=== PATIENT | female | born 1955 | race Caucasian/White ===

== ENCOUNTER → 2020-01-06 15:38 | Outpatient (ROUT) | payer OTHER, SELFPAY | PROVIDERS: Visit Provider Physician Assistant | DX: R39.9 Unspecified symptoms and signs involving the genitourinary system (principal); R14.0 Abdominal distension (gaseous) | CPT/HCPCS: 87086 ==

== ENCOUNTER → 2021-08-03 07:06 | Outpatient (CLI) | payer MEDICARE, OTHER, SELFPAY ==
[2021-08-03 08:24] LABS: Hematocrit 41.9 % (36-46); Hemoglobin 14.5 g/dL (12.0-16.0); Mean Corpuscular HGB Conc 34.7 % (30-36); Mean Corpuscular Hemoglobin 30.8 PG (26-34); Mean Corpuscular Volume 88.8 fL (80-100); Platelet Count 189 X10^3/uL (150-400); Red Blood Cell Count 4.73 X10^6/uL (4.0-5.2); Red Cell Distribution Width 13.5 % (11.6-14.8); White Blood Cell Count 6.7 X10^3/uL (4.5-11.0)
[2021-08-03 08:34] LABS: Alanine Aminotransferase 26 IU/L (<35); Albumin 3.9 g/dL (3.5-5.0); Albumin Globulin Ratio 1.3 (1.0-2.8); Alkaline Phosphatase 49 U/L (38-126); Aspartate Aminotransferase 29 IU/L (14-36); BUN Creatinine Ratio 31.6 (6-22); Bilirubin Total 0.6 mg/dL (0.2-1.3); Blood Urea Nitrogen 24 mg/dL (7-17); Carbon Dioxide 29 mmol/L (22-32); Chloride 104 mmol/L (98-107); Cholesterol 184 mg/dL (140-199); Estimated Glomerular Filt Rate > 60 mL/min (>60); Globulin 3.1 g/dL (1.7-4.1); Glucose 99 mg/dL (80-110); HDL Cholesterol 64 mg/dL (40-60); HEMOLYSIS < 15 (0-50); LDL Cholesterol Calculated 108 mg/dL (<100); Potassium 4.1 mmol/L (3.4-5.1); Sodium 139 mmol/L (137-145); Triglycerides 58 mg/dL (35-150)
== END ==
PROVIDERS: PCP Internal Medicine; Referring Provider Internal Medicine; Visit Provider Internal Medicine
DX: E78.2 Mixed hyperlipidemia (principal); Z86.010 Personal history of colon polyps; Z87.19 Personal history of other diseases of the digestive system
CPT/HCPCS: 36415; 80053; 80061; 84443; 85027

== ENCOUNTER 2022-04-27 11:48 | Day surgery (SDC) | payer MEDICARE, OTHER, SELFPAY ==
--- NOTE | 2022-04-27 | PATH_ITS ---
[facility] Accession Number: [id number] No. of containers..01 Tissue . 01 Material submitted: . gastrointestinal site - GASTRIC POLYPS . 01 Diagnosis: Gastric Polyps: Gastric body mucosa with no diagnostic abnormality. No evidence of Helicobacter organisms on H/E stain. Negative for intestinal metaplasia. Negative for dysplasia or malignancy. Additional step sections examined. MRV 05/04/2022 1452 Local . 01 Electronically signed: . Luis Manuel Gaspar MD, PhD, Pathologist NPI- [id number] . 01 Gross description: . GASTRIC POLYPS: Received in formalin are 2 fragment(s) of burns, soft tissue measuring 0.3 x 0.1 x 0.1 cm to 0.3 x 0.1 x 0.1 cm submitted entirely in 1 cassette(s) /CPE 04/28/2022 0601 Local . 01 Pathologist provided ICD-10: K31.7 . 01 CPT . 003014 Specimen Comment: A courtesy copy of this report has been sent to [phone] Performed at: 01 [facility] [address] [place] [address] [address] [facility], [place], [place] [id number] MD Ambrosio Nettles MD Phone: [phone]
[2022-04-27 13:15] VITALS: BMI 25.8
[2022-04-27 13:19] VITALS: BP 131/79; PULSE 89; RESP 16; TEMP 37.2; O2SAT 98
[2022-04-27] MEDS: LACTATED RINGERS 1,000 ML 42 ML IV (13:28)
--- NOTE | 2022-04-27 13:32 | PM.HP.1 ---
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 Findings were missing on follow-up and upper endoscopy. In addition history of adenomatous colon polyps. Patient History Medical History (Updated 08/02/21 @ 14:57 by Octavio Mooney MD) History of Mcallister's esophagus History of colon polyps Medicare annual wellness visit, initial Tinnitus Family & Social History Family History Father Stroke Mother History of emphysema Social History: household members spouse Tobacco & Substance use: Smoking Status Former smoker alcohol intake never Substance Use Type does not use Meds Home Medications and Allergies Home Medications Medication Instructions Recorded Confirmed Type cholecalciferol (vitamin D3) 125 125 mcg PO DAILY 08/02/21 04/27/22 History mcg (5,000 unit) capsule epinephrine 0.3 mg/0.3 mL 0.3 mg IM Q4H PRN 08/02/21 08/02/21 History injection, auto-injector (EpiPen) glutamine 500 mg tablet 500 mg PO DAILY 08/02/21 04/27/22 History (L-Glutamine) multivitamin 1 tab PO DAILY 08/02/21 04/27/22 History omega-3 fatty acids 1,000 mg 1,000 mg PO DAILY 08/02/21 04/27/22 History capsule probiotic 1 cap PO DAILY 08/02/21 History Allergies Allergy/AdvReac Type Severity Reaction Status Date / Time Penicillins Allergy lip Verified 04/27/22 13:13 swelling;childhood rxn Exam Vital Signs (past 8 hours): - 04/27/22 13:19 Temperature 98.9 F Pulse Rate 89 Respiratory Rate 16 Blood Pressure 131/79 Pulse Oximetry 98 Oxygen Delivery Method Room Air Oxygen Delivery Method Room Air Narrative Exam Narrative: Oropharynx free of lesions Chest clear to auscultation percussion Cardiac exam reveals no S3 or murmur Assessment & Plan Assessment & Plan narrative: History of Mcallister's esophagus and history of adenomatous colon polyps need for follow-up colonoscopy and upper endoscopy. Risks, benefits, alternatives have been explained. Further recommendations will follow the results of that study. Time Spent With Patient Critical Care time: I spent a total of [] minutes of critical care time on this patient's care today; this time is exclusive of procedural time.
--- NOTE | 2022-04-27 13:34 | PM.OP.EC ---
Operative Date/Time/Diagnoses Date of procedure: 04/27/22 Pre-op diagnosis: See indication and findings Procedure & Clinicians Study performed: EGD and colonoscopy Indications: Mcallister's esophagus and history of adenomatous colon polyps Surgeon: Linda Lewis Procedure Notes Procedure in detail: After informed consent was obtained the patient was placed in left lateral decubitus position. The video upper scope was placed into the oropharynx and with the patient's help swelled into the esophagus. The esophagus stomach and duodenum were carefully examined. On withdrawal, retroflexed view the GE junction was performed. The scope was removed. The patient tolerated procedure well. Blood loss none Complications none Sedation propofol Findings EGD 1. Completely regular squamocolumnar junction without any irregularities to suggest Mcallister's esophagus. No random biopsies taken. This was approximately at 40 cm. 2. Few small pitted gastric polyps in the body of the stomach. Biopsies taken to rule out adenoma 3. Normal duodenal bulb and sweep Colonoscopy 1. Unable to pass colonoscope beyond the splenic flexure. There was a very deep but palpable loops within the pelvis that could not be reduced. This area the colon appeared normal. I would suggest no further EGD or colonoscopy for the patient. If completion colorectal cancer screening is appropriate then one should consider virtual colonoscopy (CT colography))
[2022-04-27 14:16] VITALS: BP 141/99; PULSE 73; RESP 14; TEMP 36.1; O2SAT 95
[2022-04-27 14:20] VITALS: BP 138/93; PULSE 72; RESP 16; O2SAT 96
[2022-04-27 14:32] VITALS: BP 138/85; PULSE 76; RESP 20; O2SAT 97
[2022-04-27 14:36] VITALS: BP 138/83; PULSE 66; RESP 23; TEMP 36.3; O2SAT 97
[2022-04-27] MEDS: ONDANSETRON 4 MG ODT SL (15:17)
[2022-04-27 15:18] VITALS: BP 133/92; PULSE 83
--- NOTE | 2022-04-27 16:15 | SUR.PHASEII ---
Patient vomited 100mL after speaking with Dr. Lewis. aware, KELLIE Sin ordered and given. Patient went to the bathroom and reportedly passed flatus. Pain decreased to 3/10 and nausea improved. Patient discharged.
== END 2022-04-27 15:40 | disposition home or self-care (01) ==
PROVIDERS: PCP Internal Medicine; Referring Provider Internal Medicine Gastroenterology; Visit Provider Internal Medicine Gastroenterology
PROC: 0DJ08ZZ Inspection of Upper Intestinal Tract, Via Natural or Artificial Opening Endoscopic (ICD-10-PCS; CPT 43235; principal; 2022-04-27 13:30)
PROC: 0DJD8ZZ Inspection of Lower Intestinal Tract, Via Natural or Artificial Opening Endoscopic (ICD-10-PCS; CPT 45378; 2022-04-27 13:30)
DX: Z87.19 Personal history of other diseases of the digestive system (principal); Z86.010 Personal history of colon polyps; Z53.09 Procedure and treatment not carried out because of other contraindication
CPT/HCPCS: 43239; G0105; J2250; J2704; J3010

== ENCOUNTER → 2022-07-09 10:39 | Outpatient (CLI) | payer MEDICARE, OTHER, SELFPAY ==
--- NOTE | 2022-07-09 10:41 | DI.MG.S_ITS ---
BILATERAL DIGITAL SCREENING MAMMOGRAM 3D/2D WITH CAD: 07/09/2022 CLINICAL: Routine screening. Family history of breast cancer. Baseline exam by default. No prior exams were available for comparison. There are scattered areas of fibroglandular density in both breasts (category b / 25%-50% glandular tissue). Current study was also evaluated with a Computer Aided Detection (CAD) system. There are regional calcifications in the left breast at 1 o'clock middle depth. No other significant masses, calcifications, or other findings are seen in either breast. IMPRESSION: INCOMPLETE: NEEDS ADDITIONAL IMAGING EVALUATION The regional calcifications in the left breast are indeterminate. Additional views are recommended. Based on the Tyrer Cuzick model (a risk assessment model) the patient's lifetime risk is 12.4% and her 10 year risk is 6.6%. According to the ACR, ACS, and NCCN guidelines, an annual breast MRI exam along with mammogram is recommended if the patient's lifetime risk is 20% or greater. This exam was interpreted at Station ID: [id number]. NOTE: For mammograms, a report in lay terms will be sent to the patient. Approximately 15% of breast malignancies will not be visualized mammographically. In the management of a palpable breast mass, a negative mammogram must not discourage biopsy of a clinically suspicious lesion. Electronically Signed By: Steve Braga M.D. lc/:07/11/2022 08:09:08 letter sent: Additional Imaging Needed ACR BI-RADS Category 0: Incomplete [id number]
== END ==
PROVIDERS: PCP Internal Medicine; Referring Provider Internal Medicine; Visit Provider Internal Medicine
DX: Z12.31 Encounter for screening mammogram for malignant neoplasm of breast (principal); Z80.3 Family history of malignant neoplasm of breast
CPT/HCPCS: 77063; 77067

== ENCOUNTER → 2022-07-21 09:25 | Outpatient (CLI) | payer MEDICARE, OTHER, SELFPAY ==
--- NOTE | 2022-07-21 | DI.MG.S_ITS ---
UNILATERAL LEFT DIGITAL DIAGNOSTIC MAMMOGRAM 3D/2D WITH ADDITIONAL VIEWS: 07/21/2022 CLINICAL: Additional evaluation requested from prior study. Comparison is made to exam dated: 07/09/2022 mammogram - [facility]. There are scattered areas of fibroglandular density in the left breast (category b / 25%-50% glandular tissue). There are regional calcifications in the left breast at 1 o'clock middle depth. These are seen in additional views. No other significant masses or calcifications are seen in the breast. IMPRESSION: PROBABLY BENIGN The regional calcifications in the left breast are probably benign. A follow-up mammogram in 6 months is recommended to demonstrate stability. Based on the Tyrer Cuzick model (a risk assessment model) the patient's lifetime risk is 12.4% and her 10 year risk is 6.6%. According to the ACR, ACS, and NCCN guidelines, an annual breast MRI exam along with mammogram is recommended if the patient's lifetime risk is 20% or greater. This exam was interpreted at Station ID: [id number]. NOTE: For mammograms, a report in lay terms will be sent to the patient. Approximately 15% of breast malignancies will not be visualized mammographically. In the management of a palpable breast mass, a negative mammogram must not discourage biopsy of a clinically suspicious lesion. Electronically Signed By: Steve Braga M.D. lc/:07/21/2022 10:13:26 letter sent: Followup Recommended ACR BI-RADS Category 3: Probably benign [id number]
== END ==
PROVIDERS: PCP Internal Medicine; Referring Provider Internal Medicine; Visit Provider Internal Medicine
DX: R92.1 Mammographic calcification found on diagnostic imaging of breast (principal)
CPT/HCPCS: 77065; G0279

== ENCOUNTER → 2022-11-03 06:41 | Outpatient (CLI) | payer MEDICARE, OTHER, SELFPAY ==
[2022-11-03 08:14] LABS: Alanine Aminotransferase 25 IU/L (<35); Albumin Globulin Ratio 1.7 (1.0-2.8); Alkaline Phosphatase 47 U/L (38-126); Aspartate Aminotransferase 23 IU/L (14-36); BUN Creatinine Ratio 35.7 (6-22); Bilirubin Total 0.7 mg/dL (0.2-1.3); Blood Urea Nitrogen 25 mg/dL (7-17); Calcium 9.1 mg/dL (8.4-10.2); Carbon Dioxide 25 mmol/L (22-32); Chloride 105 mmol/L (98-107); Cholesterol 199 mg/dL (140-199); Estimated Glomerular Filt Rate > 60 mL/min (>60); Globulin 2.4 g/dL (1.7-4.1); Glucose 92 mg/dL (80-110); HDL Cholesterol 86 mg/dL (40-60); HEMOLYSIS < 15 (0-50); LDL Cholesterol Calculated 100 mg/dL (<100); Potassium 4.1 mmol/L (3.4-5.1); Sodium 137 mmol/L (137-145); Total Protein 6.4 g/dL (6.3-8.2); Triglycerides 63 mg/dL (35-150)
[2022-11-03 08:18] LABS: Hematocrit 43.1 % (36-46); Hemoglobin 14.8 g/dL (12.0-16.0); Mean Corpuscular HGB Conc 34.3 % (30-36); Mean Corpuscular Hemoglobin 30.6 PG (26-34); Mean Corpuscular Volume 89.3 fL (80-100); Platelet Count 177 X10^3/uL (150-400); Red Blood Cell Count 4.83 X10^6/uL (4.0-5.2); Red Cell Distribution Width 13.7 % (11.6-14.8); White Blood Cell Count 4.8 X10^3/uL (4.5-11.0)
[2022-11-03 08:36] LABS: TSH w/ Reflex to FT4 2.03 uIU/mL (0.47-4.68)
== END ==
PROVIDERS: PCP Internal Medicine; Referring Provider Internal Medicine; Visit Provider Internal Medicine
DX: E78.2 Mixed hyperlipidemia (principal); K59.01 Slow transit constipation
CPT/HCPCS: 36415; 80053; 80061; 84443; 85027

== ENCOUNTER → 2023-01-23 11:54 | Outpatient (CLI) | payer MEDICARE, OTHER, SELFPAY ==
--- NOTE | 2023-01-23 11:57 | DI.MG.S_ITS ---
UNILATERAL LEFT DIGITAL DIAGNOSTIC MAMMOGRAM 3D/2D: 01/23/2023 CLINICAL: Short term follow up. Comparison is made to exams dated: 07/21/2022 mammogram and 07/09/2022 mammogram - [facility]. There are scattered areas of fibroglandular density in the left breast (category b / 25%-50% glandular tissue). There are regional round calcifications in the left breast at 1 o'clock middle depth, stable since 07/21/2022. No other significant masses or calcifications are seen in the breast. IMPRESSION: PROBABLY BENIGN Left breast regional round calcifications in the upper outer quadrant, stable since 07/21/2022. Findings are probably benign. A follow-up mammogram in 6 months is recommended to demonstrate 1 year stability. Patient will be due for bilateral mammograms at that time. Findings and recommendations were conveyed to the patient during today's evaluation. Based on the Tyrer Cuzick model (a risk assessment model) the patient's lifetime risk is 12.4% and her 10 year risk is 6.6%. According to the ACR, ACS, and NCCN guidelines, an annual breast MRI exam along with mammogram is recommended if the patient's lifetime risk is 20% or greater. This exam was interpreted at Station ID: [id number]. NOTE: For mammograms, a report in lay terms will be sent to the patient. Approximately 15% of breast malignancies will not be visualized mammographically. In the management of a palpable breast mass, a negative mammogram must not discourage biopsy of a clinically suspicious lesion. Electronically Signed By: Jonna Su M.D., PH.D eb/:01/23/2023 12:33:11 letter sent: Followup Recommended ACR BI-RADS Category 3: Probably benign [id number]
== END ==
PROVIDERS: PCP Internal Medicine; Referring Provider Internal Medicine; Visit Provider Internal Medicine
DX: R92.8 Other abnormal and inconclusive findings on diagnostic imaging of breast (principal); R92.1 Mammographic calcification found on diagnostic imaging of breast
CPT/HCPCS: 77065; G0279

== ENCOUNTER → 2023-05-31 11:26 | Outpatient (CLI) | payer MEDICARE, OTHER, SELFPAY ==
--- NOTE | 2023-05-31 11:29 | DI.RAD.S_ITS ---
PROCEDURE: XR LUMBAR SPINE 2-3V INDICATIONS: left sciatica TECHNIQUE: 3 views of the lumbar spine were acquired. COMPARISON: None. FINDINGS: Bones: 5 [id number] vertebrae are present. Convex right scoliosis centered at L3, Duenas angle of 28?. Severe disc height loss at L4-5. Moderate disc height loss at remaining levels. Diffuse facet arthrosis. Soft tissues: Overlying bowel gas pattern is normal. No suspicious soft tissue calcifications. IMPRESSION: Moderate to severe, multilevel degenerative disc disease and diffuse facet arthrosis. Convex right scoliosis centered at L3. Dictated by: Fermín Swan M.D. on 05/31/2023 at 13:29 Approved by: Fermín Swan M.D. on 05/31/2023 at 13:35
== END ==
PROVIDERS: PCP Internal Medicine; Referring Provider Internal Medicine; Visit Provider Internal Medicine
DX: M51.16 Intervertebral disc disorders with radiculopathy, lumbar region (principal); M47.26 Other spondylosis with radiculopathy, lumbar region; M41.9 Scoliosis, unspecified
CPT/HCPCS: 72100

== ENCOUNTER → 2023-06-27 17:10 | Outpatient (CLI) | payer MEDICARE, OTHER, SELFPAY ==
--- NOTE | 2023-06-27 17:13 | DI.MRI.S_ITS ---
PROCEDURE: MR LUMBAR SPINE WO CON INDICATIONS: sciatica TECHNIQUE: Noncontrast sagittal T1 spin echo and T2 fast echo, sagittal STIR, and T2 fast spin echo through the lumbar spine. In cases with scoliosis, additional coronal T2 fast spin echo may be performed. COMPARISON: None. FINDINGS: Image quality: Excellent. Alignment and Curvature: Dextrocurvature of the lumbar spine. Bone Marrow: Multilevel Modic type 2 degenerative endplate changes. Marrow is of normal overall signal. No acute vertebral body compression fractures. Spinal Cord: Conus medullaris terminates at the L1 level. Visualized cord demonstrates normal signal and size. Paraspinous Soft Tissues: No paravertebral masses. T12-L1: Normal appearance. L1-L2: Mild disc desiccation facet arthropathy. No central canal or neural foraminal stenosis. L2-L3: Disc desiccation and height loss. Facet arthropathy and thickening of ligamentum flavum. Mild central canal stenosis. Mild bilateral neural foraminal stenosis. L3-L4: Disc desiccation height loss. Diffuse disc bulge. Facet arthropathy and thickening of ligamentum flavum. Epidural lipomatosis. Mild to moderate central canal stenosis. Narrowing of the left lateral recess with abutment versus impingement of the descending left L4 nerve root. Mild bilateral neural foraminal stenosis. L4-L5: Disc desiccation height loss. Diffuse disc bulge. Facet arthropathy and thickening of ligamentum flavum. Mild to moderate central canal stenosis. Narrowing of the right lateral recess with possible impingement the descending right L5 nerve root. Moderate bilateral neural foraminal stenosis. L5-S1: Disc desiccation height loss. Diffuse disc bulge. Facet arthropathy. No central canal stenosis. Severe right and no left neural foraminal stenosis. IMPRESSION: 1. Multilevel degenerative changes of the lumbar spine with dextro scoliotic curvature. 2. Mild to moderate central canal stenosis at L3-L4 and L4-5. Narrowing of the left lateral recesses as above. 3. Severe right neural foraminal stenosis at L5-S1. Moderate bilateral neural foraminal stenosis at L4-5. Dictated by: Maurisio Castro M.D. on 06/28/2023 at 8:12 Approved by: Maurisio Castro M.D. on 06/28/2023 at 8:16
== END ==
PROVIDERS: PCP Internal Medicine; Referring Provider Internal Medicine; Visit Provider Internal Medicine
DX: M47.816 Spondylosis without myelopathy or radiculopathy, lumbar region (principal); M47.817 Spondylosis without myelopathy or radiculopathy, lumbosacral region; M48.061 Spinal stenosis, lumbar region without neurogenic claudication; M48.07 Spinal stenosis, lumbosacral region; M54.32 Sciatica, left side
CPT/HCPCS: 72148

== ENCOUNTER 2023-07-12 13:53 | Outpatient (CLI) | payer MEDICARE, OTHER, SELFPAY ==
[2023-07-12 14:18] VITALS: BP 147/96; PULSE 69; RESP 18; TEMP 37.2; O2SAT 98
[2023-07-12 14:30] VITALS: BP 141/84; PULSE 86; RESP 12; O2SAT 98
--- NOTE | 2023-07-12 14:30 | DI.RAD.S_ITS ---
PROCEDURE: PAIN L/S TRANSFORAMINAL INJECT INDICATIONS: RADICULOPATHY COMPARISON: [facility], CR, XR LUMBAR SPINE 2-3V, 05/31/2023, 11:51. FINDINGS: Fluoroscopic spot filming was performed to verify placement of spinal needles at the left L4-L5 level(s), as labeled on the films. Appropriate location(s) of the needle tip(s) was confirmed by injection of iodinated contrast. IMPRESSION: Intraoperative guidance provided. Dictated by: Trey Metzger M.D. on 07/12/2023 at 22:29 Approved by: Trey Metzger M.D. on 07/12/2023 at 22:30
--- NOTE | 2023-07-12 14:33 | PC.NURSE ---
Patient noted to be in A fib with occasional PVC's. Heart rate 80-90 BPM, denies chest pain, SOB, heart palpations. Patient denies any hx of afib. De Miguelina aware ok to continue with procedure. Will obtain EKG when in post procedure room.
[2023-07-12] MEDS: iopamidoL 15 ML VIAL 3 ML INJ (14:35)
[2023-07-12] MEDS: DEXAMETHASONE 10 MG/ML VIAL INJ (14:35)
[2023-07-12 14:36] VITALS: BP 143/85; PULSE 81; RESP 12; O2SAT 99
[2023-07-12 14:40] VITALS: BP 191/81; PULSE 78; RESP 14; O2SAT 99
[2023-07-12 14:48] VITALS: BP 153/83; PULSE 79; RESP 16; O2SAT 98
--- NOTE | 2023-07-12 15:09 | PC.NURSE ---
A-Fib/PVCs Patient having A-fib with PVCs during procedure. Patient reports no history of Afib. No distress noted, VS within patient's normal, no chest pain, no shortness of breath. EKG obtained per verbal orders from Dr. Mcintyre. Patient has Dr. Mooney as primary MD. Dr. Mooney's office notified of EKG results. Patient instructed to see Dr. Mooney at 1145 07/13[address]. [address] Mcintyer is okay with patient going home and seeing Primary MD charlette.
--- NOTE | 2023-07-12 15:41 | PM.PROC.IR.1 ---
Date/Time/Diagnoses Date of procedure: 07/12/23 Time of procedure: 14:30 Procedure Notes Physician: Hector Mcintyre Total Fluoroscopy time (seconds): 32 Total sedation minutes: 0 Procedure in detail & Post-procedure care: Left L4-5 Transforaminal Epidural Steroid Injection Indications: Maryann is presenting for treatment of lumbar radiculopathy with low back and leg pain. Preoperative diagnosis: Lumbar radiculopathy Postoperative diagnosis: Same Focused Examination: Ax3 Mood and affect are normal Vital Signs: VSS Consent: Following review of allergies and potential side effects/complications, including, but not necessarily limited to, infection, allergic reaction, local tissue breakdown, stroke, temporary or permanent nerve injury, paralysis, and possible , the patient indicated that they understood and agreed to proceed.? An informed consent document was signed by the patient, witnessed by a nurse and placed in the patient's chart.? Additionally, other treatment options including medications and physical therapy were reviewed with the patient. All questions were answered. Site was then marked. Anesthesia: Local Position: Prone Monitoring: NIBP, Pulse oximetry, 3 lead EKG Needle used: 22G, 5 inch spinal needle Contrast: Isovue 300M Injectate: 10 mg Dexamethasone mixed with 1% lidocaine 1 ml and normal saline 1 mL Technique: The skin was prepped with chloraprep and draped in a sterile fashion. Time out was performed as per protocol. Oxygen applied via NC. Skin and subcutaneous structures of the needle entry site were infiltrated with 3mL of lidocaine 1%. Under fluoroscopic guidance, using an ipsilateral oblique view,?a 22 gauge 5 inch needle was advanced to the base of the left L4?pedicle.? The needle was advanced to the superio-posterior aspect of the neural foramen under lateral view.? Oblique and AP views were rechecked. No paresthesias noted by the patient during needle placement. In AP view and utilizing real-time digital subtraction fluoroscopy, 2 ml contrast was slowly injected. Epidural spread was observed without evidence for intravascular nor intrathecal uptake. Contrast spread was seen craniocaudally. The above injectate was then administered without paresthesias and the needle was subsequently withdrawn. Band-Aids applied to injection sites. During the procedure, there was concern of irregular heart rhythm noted. EKG in the recovery room consistent with atrial fibrillation. EBL: less than 1 ml Complications: None Post Procedure: Patient was taken to the recovery and monitored. The patient was provided a Pain Log to continue to record the patient's response to the target-specific procedure prior to the patient's follow-up visit with the referring physician. Patient was stable upon discharge. Detailed post procedure instructions were provided. Patient was asked to call in the event of worsening pain, fever, weakness, numbness or bladder or bowel incontinence. In regards to the findings of atrial fibrillation, she made an appointment with Dr. Mooney tomorrow. She notes that she will stay in [place] until this visit. We also discussed that she could present to the emergency department for earlier treatment which she denied. She denied any symptoms of chest pain, shortness of breath, lightheaded/dizziness.
== END 2023-07-12 15:20 | disposition home or self-care (01) ==
PROVIDERS: PCP Internal Medicine; Referring Provider Anesthesiology; Visit Provider Anesthesiology
DX: M54.16 Radiculopathy, lumbar region (principal); I48.91 Unspecified atrial fibrillation
CPT/HCPCS: 64483; 93005; J1100

== ENCOUNTER → 2023-07-14 06:58 | Outpatient (CLI) | payer MEDICARE, OTHER, SELFPAY ==
[2023-07-14 09:06] LABS: Hematocrit 43.4 % (36-46); Hemoglobin 14.8 g/dL (12.0-16.0); Mean Corpuscular HGB Conc 34.2 % (30-36); Mean Corpuscular Volume 90.7 fL (80-100); Platelet Count 229 X10^3/uL (150-400); Red Blood Cell Count 4.78 X10^6/uL (4.0-5.2); Red Cell Distribution Width 13.4 % (11.6-14.8); White Blood Cell Count 6.8 X10^3/uL (4.5-11.0)
[2023-07-14 09:30] LABS: Alanine Aminotransferase 27 IU/L (<35); Albumin 4.1 g/dL (3.5-5.0); Albumin Globulin Ratio 1.8 (1.0-2.8); Alkaline Phosphatase 59 U/L (38-126); Aspartate Aminotransferase 29 IU/L (14-36); BUN Creatinine Ratio 33.3 (6-22); Bilirubin Total 0.7 mg/dL (0.2-1.3); Blood Urea Nitrogen 25 mg/dL (7-17); Calcium 9.4 mg/dL (8.4-10.2); Carbon Dioxide 28 mmol/L (22-32); Chloride 109 mmol/L (98-107); Cholesterol 192 mg/dL (140-199); Estimated Glomerular Filt Rate > 60 mL/min (>60); Globulin 2.3 g/dL (1.7-4.1); Glucose 87 mg/dL (80-110); HDL Cholesterol 90 mg/dL (40-60); HEMOLYSIS < 15 (0-50); LDL Cholesterol Calculated 85 mg/dL (<100); Potassium 4.3 mmol/L (3.4-5.1); Sodium 142 mmol/L (137-145); Total Protein 6.4 g/dL (6.3-8.2); Triglycerides 84 mg/dL (35-150)
[2023-07-14 10:05] LABS: TSH w/ Reflex to FT4 6.55 uIU/mL (0.47-4.68)
[2023-07-14 10:48] LABS: Free T4, Direct Thyroxine 1.32 ng/dL (0.78-2.19)
== END ==
PROVIDERS: PCP Internal Medicine; Referring Provider Internal Medicine; Visit Provider Internal Medicine
DX: I48.0 Paroxysmal atrial fibrillation (principal); E78.2 Mixed hyperlipidemia
CPT/HCPCS: 36415; 80053; 80061; 84439; 84443; 85027

== ENCOUNTER → 2023-07-26 11:50 | Outpatient (CLI) | payer MEDICARE, OTHER, SELFPAY ==
--- NOTE | 2023-07-26 11:51 | DI.MG.S_ITS ---
BILATERAL DIGITAL DIAGNOSTIC MAMMOGRAM 3D/2D: 07/26/2023 CLINICAL: Patient returns for a 6 month follow up of the left breast, due for bilateral exam. Comparison is made to exams dated: 01/23/2023 mammogram, 07/21/2022 mammogram, and 07/09/2022 mammogram - [facility]. There are scattered areas of fibroglandular density in both breasts (category b / 25%-50% glandular tissue). There are stable regional round calcifications in the left breast at 1 o'clock middle depth. No other significant masses, calcifications, or other findings are seen in either breast. IMPRESSION: PROBABLY BENIGN The stable regional calcifications in the left breast are probably benign. A follow-up diagnostic mammogram with magnification views in 12 months is recommended. Based on the Tyrer Cuzick model (a risk assessment model) the patient's lifetime risk is 11.8% and her 10 year risk is 6.6%. According to the ACR, ACS, and NCCN guidelines, an annual breast MRI exam along with mammogram is recommended if the patient's lifetime risk is 20% or greater. This exam was interpreted at Station ID: [id number]. NOTE: For mammograms, a report in lay terms will be sent to the patient. Approximately 15% of breast malignancies will not be visualized mammographically. In the management of a palpable breast mass, a negative mammogram must not discourage biopsy of a clinically suspicious lesion. Electronically Signed By: Garrison Molina M.D. ar/:07/26/2023 12:30:16 letter sent: Followup Recommended ACR BI-RADS Category 3: Probably benign 3343F
== END ==
LOC: MAMMO 11:51
PROVIDERS: PCP Internal Medicine; Referring Provider Internal Medicine; Visit Provider Internal Medicine
DX: R92.8 Other abnormal and inconclusive findings on diagnostic imaging of breast (principal); R92.1 Mammographic calcification found on diagnostic imaging of breast
CPT/HCPCS: 77066; G0279

== ENCOUNTER → 2023-08-08 08:01 | Outpatient (CLI) | payer MEDICARE, OTHER, SELFPAY ==
--- NOTE | 2023-08-08 08:03 | DI.ECHO.S_ITS ---
[facility] : : [address] : : [place] : : [id number] : : Phone: [phone] Echocardiogram Report + + :Name: WEI FRANKLIN I Study Date: 08/08/2023 Height: 69 in : :Hospital ReadingLocation: Weight: 175 lb : : Gender: Female BSA: 2.0 m2 : :: 1955 Age: 68 yrs BP: 110/69 mmHg: :Reason For Study: ATRIAL FIBRILLATION : :Ordering Physician: MONICA VINES Performed By: Suad Durham : :Referring: MONICA VINES : + + Interpretation Summary The left ventricle is normal in size and wall thickness. The left ventricular ejection fraction is normal. The ejection fraction is estimated to be 60-65%. The right ventricle is normal size. The right ventricular systolic function is normal. There is mild to moderate mitral regurgitation. There is mild tricuspid regurgitation. The right ventricular systolic pressure is estimated to be at least 28 mmHg based on an estimated right atrial pressure of 3 mm Hg. Procedure: A two-dimensional transthoracic echocardiogram with color flow and Doppler was performed. The study quality was technically adequate. There is no prior echocardiogram noted for this patient. The patient was in atrial fibrillation with controlled ventricular rate during the exam. The patient had occasional PVCs during the exam. Left Ventricle: The left ventricle is normal in size and wall thickness. There is no thrombus. The ejection fraction is estimated to be 60-65%. The left ventricular ejection fraction is normal. There are no focal wall motion abnormalities. Diastolic function could not be accurately assessed due to atrial fibrillation. Right Ventricle: The right ventricle is normal size. The right ventricular systolic function is normal. Atria: The left atrium is moderately dilated. Right atrial size is normal. There is no Doppler evidence for an interatrial shunt. Mitral Valve: The mitral valve is normal. There is mild to moderate mitral regurgitation. Aortic Valve: The aortic valve is trileaflet. The aortic valve opens well. There is no aortic valve stenosis. No aortic regurgitation is present. Tricuspid Valve: The tricuspid valve is normal. There is mild tricuspid regurgitation. The right ventricular systolic pressure is estimated to be at least 28 mmHg based on an estimated right atrial pressure of 3 mm Hg. Pulmonic Valve: The pulmonic valve leaflets are thin and pliable; valve motion is normal. There is trace pulmonic regurgitation. Great Vessels: The aortic root is normal size. The dimensions of the ascending aorta are normal. The IVC is of normal diameter and collapses greater than 50% with a sniff. This suggests a low right atrial pressure of 3 mm Hg. Pericardium/ Pleura There is no pericardial effusion. There is no pleural effusion. MMode/2D Measurements & Calculations LVIDd: 3.7 cm LVOT diam: 2.0 cm LVIDs: 2.3 cm Ao root diam: 3.3 cm FS: 36.8 % asc Aorta Diam: 2.5 cm IVSd: 0.90 cm Ao Arch Diam (Prox Trans): 2.9 cm LVPWd: 0.98 cm LV arriaga. diameter/BSA (cm/m^2): 1.9 LV sys. diameter/BSA (cm/m^2): 1.2 LA A2 area: 25.2 cm2 RA long axis: 5.5 cm LA A4 area: 20.5 cm2 RA area: 18.0 cm2 LA length (vol): 5.2 cm RA vol: 50.4 ml LA vol: 84.5 ml RA : 25.8 ml/m2 LA vol index: 43.3 ml/m2 IVC diam: 1.5 cm RVD1 (basal): 3.5 cm RVD2 (mid): 2.7 cm TAPSE: 1.7 cm Doppler Measurements & Calculations Ao V2 max: 139.7 cm/sec LVOT Max Aren: 110.3 cm/sec Ao V2 mean: 99.5 cm/sec LV V1 max P.9 mmHg Ao max P.8 mmHg LV V1 VTI: 20.6 cm Ao mean P.3 mmHg GREG(I,D): 2.6 cm2 Ao V2 VTI: 24.9 cm GREG(V,D): 2.5 cm2 sev ratio: 0.83 GREG indexed to BSA (cm^2/m^2): 1.3 MV E max aren: 91.4 cm/sec TR max aren: 248.1 cm/sec MV A max aren: 0.81 cm/sec TR max P.6 mmHg MV E/A: 113.3 PA V2 max: 88.8 cm/sec Med Peak E' Aren: 10.9 cm/sec PA V2 mean: 62.9 cm/sec E/E' med: 8.4 PA mean P.7 mmHg Lat Peak E' Aren: 12.1 cm/sec PA pr(Accel): 20.8 mmHg E/E' lat: 7.5 E/e' average: 8.0 MV dec time: 0.16 sec SVLVOT): 64.6 ml Reading Physician:02:57 PM
== END ==
PROVIDERS: PCP Internal Medicine; Referring Provider Internal Medicine; Visit Provider Internal Medicine
DX: I08.1 Rheumatic disorders of both mitral and tricuspid valves (principal); I48.0 Paroxysmal atrial fibrillation
CPT/HCPCS: 93306

== ENCOUNTER → 2023-09-27 06:52 | Outpatient (CLI) | payer MEDICARE, OTHER, SELFPAY ==
[2023-09-28 23:11] LABS: Thyroid Peroxidase Antibodies 10 IU/mL (0-34)
== END ==
PROVIDERS: PCP Internal Medicine; Referring Provider Internal Medicine; Visit Provider Internal Medicine
DX: R79.89 Other specified abnormal findings of blood chemistry (principal)
CPT/HCPCS: 36415; 84443; 86376

== ENCOUNTER → 2023-10-03 09:47 | Outpatient (CLI) | payer MEDICARE, OTHER, SELFPAY ==
--- NOTE | 2023-10-03 09:48 | DI.NM.S_ITS ---
PROCEDURE: NM THOMAS PERF SPECT R&S PHARM Rest and pharmacological stress myocardial perfusion SPECT with gated imaging and ejection fraction RADIOPHARMACEUTICAL: 11.7 mCi Tc-99m tetrafosmin IV at rest and 25.8 mCi Tc-99m tetrafosmin IV at peak effect of pharmacological stress. [id number] was performed. INDICATIONS: Paroxysmal atrial fibrillation TECHNIQUE: Radiopharmaceutical was injected at peak stress test, and also at rest. SPECT images were obtained. SPECT myocardial perfusion images were displayed in short axis, horizontal long axis, and vertical long axis views. Gated images were reviewed using [employer] software. COMPARISON: None. CARDIAC STRESS: A pharmacologic stress test was performed under the supervision of an attending staff, using an infusion of lexiscan 0.4mg IV X1. Hemodynamic data: There is normal blood pressure and heart rate response to pharmacologic stress. Symptoms: The patient denied anginal chest pain. Aminophylline: none EKG: No diagnostic changes of ischemia; occasional PVCs. FINDINGS: Raw data: There is good myocardial uptake of radiotracer. No significant motion artifacts. Mpac-fl-nvugw ratio is 0.31 (normal is less than 0.38 for tetrafosmin tracer). Left ventricle function: Gated images demonstrate normal left ventricular wall thickening. No segmental wall motion abnormalities. No transient ischemic dilation; TID is 1.13 (normal less than 1.3). Left ventricle resting end diastolic volume is 80mL. Left ventricle stress ejection fraction is 80%; normal range is above 45%. Myocardial perfusion: There is a mildly intense fixed anterior wall defect that essentially resolves with prone imaging, suggesting artifact. No definite ischemia or prior infarct. IMPRESSION: Low risk, probably normal pharm nuclear stress test 1) There is a mildly intense fixed anterior wall defect that essentially resolves with prone imaging, suggesting artifact. No definite ischemia or prior infarct. 2) Normal left ventricular size, wall motion, and systolic function (EF post stress 80%). 3) No diagnostic ST changes with lexiscan. 4) No angina during the study. 5) No prior nuclear stress test available for comparison. Dictated by: Kyrie Rodrigez MD on 10/03/2023 at 16:59 Approved by: Kyrie Rodrigez MD on 10/03/2023 at 17:02
== END ==
PROVIDERS: PCP Internal Medicine; Referring Provider Internal Medicine; Visit Provider Internal Medicine
DX: I48.0 Paroxysmal atrial fibrillation (principal)
CPT/HCPCS: 78452; 93017; A9502; J2785

== ENCOUNTER → 2023-10-09 10:16 | Outpatient (CLI) | payer MEDICARE, OTHER, SELFPAY ==
--- NOTE | 2023-10-09 10:17 | DI.RAD.S_ITS ---
PROCEDURE: XR DEXA AXIAL SKELETON INDICATIONS: postmenopausal COMPARISON: None. FINDINGS: Lumbar Spine (L2 excluded): Bone mineral density 1.028 g/cm2, T score -0.2, normal. Left femoral neck: Bone mineral density 0.684 g/cm2, T score -1.5, osteopenia. Left hip: Bone mineral density 0.780 g/cm2, T score -1.3, osteopenia. Right femoral neck: Bone mineral density 0.701 g/cm2, T score -1.3, osteopenia. Right hip: Bone mineral density 0.782 g/cm2, T score -1.3, osteopenia. Fracture Risk Calculation (when applicable): 10-year fracture risk of a major osteoporotic fracture 9.6% and of a hip fracture 1.2%. (T score greater or equal to -1.0 to: NORMAL) (T score from -1.1 to -2.4: OSTEOPENIA) (T score less than or equal to -2.5: OSTEOPOROSIS) IMPRESSION: Osteopenia. Follow-up guidelines as follows: Osteoporosis: Consider a repeat DEXA and Vertebral Fracture Assessment (VFA) exam in 2 years or sooner if medically necessary, to reassess this patient's status. Osteopenia: Consider a repeat DEXA in 2-3 years to reassess this patient's status, or if there is a new clinical indication. Normal: Consider a repeat DEXA in 5 years or sooner, or if there is a new clinical indication. All treatment decisions require clinical judgment and consideration of individual patient factors, including patient preferences, comorbidities, previous drug use, risk factors not captured in the FRAX model (e.g., frailty, falls, vitamin D deficiency, increased bone turnover, interval significant decline in bone density ) and possible under- or over-estimation of fracture risk by FRAX. In addition, the NOF Guide recommends that FDA-approved medical therapies be considered in postmenopausal women and men age >= 50 years with a: * Hip or vertebral (clinical or morphometric) fracture * T-score of <=-2.5 at the spine or hip * Ten-year fracture probability by FRAX of >= 3% for hip fracture or >=20% for major osteoporotic fracture. People with diagnosed cases of osteoporosis or at high risk for fracture should have regular bone mineral density tests. For patients eligible for Medicare, routine testing is allowed once every 2 years. The testing frequency can be increased to one year for patients who have rapidly progressing disease, those who are receiving or discontinuing medical therapy to restore bone mass, or have additional risk factors. Dictated by: Fermín Swan M.D. on 10/09/2023 at 13:50 Approved by: Fermín Swan M.D. on 10/09/2023 at 13:51
== END ==
PROVIDERS: PCP Internal Medicine; Referring Provider Internal Medicine; Visit Provider Internal Medicine
DX: M85.89 Other specified disorders of bone density and structure, multiple sites (principal)
CPT/HCPCS: 77080

== ENCOUNTER → 2023-10-20 07:14 | Outpatient (CLI) | payer MEDICARE, OTHER, SELFPAY | PROVIDERS: PCP Internal Medicine; Referring Provider Registered Nurse; Visit Provider Registered Nurse | DX: R31.9 Hematuria, unspecified (principal) | CPT/HCPCS: 87086 ==

== ENCOUNTER → 2023-10-20 07:29 | Outpatient (CLI) | payer MEDICARE, OTHER, SELFPAY ==
[2023-10-20 08:23] LABS: Alanine Aminotransferase 43 IU/L (<35); Albumin 3.8 g/dL (3.5-5.0); Albumin Globulin Ratio 1.5 (1.0-2.8); Alkaline Phosphatase 59 U/L (38-126); Aspartate Aminotransferase 35 IU/L (14-36); BUN Creatinine Ratio 34.3 (6-22); Bilirubin Total 0.5 mg/dL (0.2-1.3); Blood Urea Nitrogen 23 mg/dL (7-17); Calcium 9.2 mg/dL (8.4-10.2); Carbon Dioxide 24 mmol/L (22-32); Chloride 108 mmol/L (98-107); Estimated Glomerular Filt Rate > 60 mL/min (>60); Globulin 2.6 g/dL (1.7-4.1); Glucose 100 mg/dL (80-110); HEMOLYSIS < 15 (0-50); Potassium 4.1 mmol/L (3.4-5.1); Sodium 137 mmol/L (137-145); Total Protein 6.4 g/dL (6.3-8.2)
== END ==
PROVIDERS: PCP Internal Medicine; Referring Provider Registered Nurse; Visit Provider Registered Nurse
DX: R31.9 Hematuria, unspecified (principal)
CPT/HCPCS: 36415; 80053; 87086

== ENCOUNTER → 2024-01-04 12:14 | Outpatient (CLI) | payer MEDICARE, OTHER, SELFPAY ==
[2024-01-04 13:33] LABS: Estimated Glomerular Filt Rate > 60 mL/min (>60)
== END ==
LOC: LAB 12:17
PROVIDERS: PCP Internal Medicine; Referring Provider Internal Medicine Cardiovascular Disease; Visit Provider Internal Medicine Cardiovascular Disease
DX: I48.19 Other persistent atrial fibrillation (principal)
CPT/HCPCS: 36415; 82565

== ENCOUNTER 2024-01-24 11:00 | Emergency (ER) | payer MEDICARE, OTHER, SELFPAY ==
[2024-01-24 11:35] VITALS: BP 127/58; PULSE 67; RESP 18; TEMP 36.9; O2SAT 98; BMI 25.7
--- NOTE | 2024-01-24 11:42 | EKG_ITS ---
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
--- NOTE | 2024-01-24 11:43 | DI.CT.S_ITS ---
PROCEDURE: CT ANGIO CHEST PE PROTOCOL INDICATIONS: shortness of breath TECHNIQUE: After the administration of intravenous contrast, 2 mm thick sections acquired from the pulmonary apices to the posterior costophrenic angles. 3-dimensional maximum intensity projection (MIP) coronal and sagittal reformats were then acquired through the thorax. For radiation dose reduction, the following was used: automated exposure control, adjustment of mA and/or kV according to patient size. COMPARISON: [facility], CT, CT ANGIO CHEST, 01/05/2024, 11:41. FINDINGS: Image quality: Diagnostic. Pulmonary arteries: Pulmonary arteries are normal in size, and demonstrate no intraluminal filling defects to suggest central pulmonary embolism. Lower Neck: No enlarged lymph nodes. Thyroid: No thyroid nodules which require sonographic follow up, per consensus guidelines. Axillae: No enlarged lymph nodes. Chest Wall: Unremarkable. Bones: T6 bone island again noted.. Lungs and Pleura: No pneumothorax or pleural effusions. 0.9 cm ground-glass opacity, right upper lobe, image 101 of series 5. Ground-glass opacity, central portion of right upper lobe, image 98 of series 5, measuring 0.6 cm. Ground-glass opacity, anterior apical portion of left upper lobe, image 63 of series 5, measuring 0.8 cm. Question very subtle interstitial edema in the lung bases bilaterally. Heart: Mild enlargement of the left ventricle and left atrium. No pericardial effusion. Thoracic Vessels: No aortic aneurysm. Mediastinum and Loretta: No enlarged lymph nodes. Esophagus: No wall thickening. No hiatal hernia. Upper Abdomen: Visualized upper abdomen solid organs and bowel loops appear normal. IMPRESSION: 1. No acute pulmonary emboli. 2. Mild left ventricular and left atrial enlargement with a suggestion of very minimal interstitial pulmonary edema. 3. There are 2 separate nonspecific ground-glass opacities in the right upper lobe and a a ground-glass opacity in the left upper lobe. Differential diagnosis includes early findings of adenocarcinoma in situ as well as benign causes. Therefore, recommend six-month CT follow-up of the chest. Dictated by: Khanh Munoz M.D. on 01/24/2024 at 12:16 Approved by: Khanh Munoz M.D. on 01/24/2024 at 12:26
--- NOTE | 2024-01-24 11:54 | PC.NURSE ---
Verbal order given by Dr. Russ to cancel chest xray and instead order CT angio PE protocol.
[2024-01-24 12:05] LABS: Add Manual Diff / Slide Review NO; Basophils Absolute Auto 0 /uL (0-100); Basophils Percent Auto 0.6 % (0-2); Eosinophils Absolute Auto 100 /uL (0-450); Eosinophils Percent Auto 0.7 % (2-4); Hematocrit 40.5 % (36-46); Hemoglobin 13.6 g/dL (12.0-16.0); Lymphocytes Absolute Auto 1300 /uL (1100-4500); Lymphocytes Percent Auto 17.1 % (25-40); Mean Corpuscular HGB Conc 33.7 % (30-36); Mean Corpuscular Volume 92.1 fL (80-100); Monocytes Absolute Auto 600 /uL (0-900); Monocytes Percent Auto 7.6 % (3-14); Neutrophils Absolute Auto 5500 /uL (1500-7000); Platelet Count 158 X10^3/uL (150-400); Red Cell Distribution Width 14.1 % (11.6-14.8); White Blood Cell Count 7.4 X10^3/uL (4.5-11.0)
[2024-01-24 12:09] LABS: INR 1.1 (0.9-1.3); Prothrombin Time 12.3 SECONDS (9.4-12.5)
[2024-01-24 12:15] LABS: Alanine Aminotransferase 68 IU/L (<35); Albumin 4.4 g/dL (3.5-5.0); Albumin Globulin Ratio 1.6 (1.0-2.8); Alkaline Phosphatase 64 U/L (38-126); Aspartate Aminotransferase 69 IU/L (14-36); Bilirubin Total 0.6 mg/dL (0.2-1.3); Blood Urea Nitrogen 21 mg/dL (7-17); Calcium 9.6 mg/dL (8.4-10.2); Carbon Dioxide 26 mmol/L (22-32); Chloride 106 mmol/L (98-107); Estimated Glomerular Filt Rate > 60 mL/min (>60); Globulin 2.8 g/dL (1.7-4.1); Glucose 98 mg/dL (80-110); HEMOLYSIS < 15 (0-50); Potassium 4.1 mmol/L (3.4-5.1); Sodium 138 mmol/L (137-145); Total Protein 7.2 g/dL (6.3-8.2)
[2024-01-24 12:16] LABS: Lactate (Lactic Acid) 0.8 mmol/L (0.7-2.1)
[2024-01-24 12:27] LABS: NT-proBNP (BNP-Adult 18+) 274 pg/mL (<125)
--- NOTE | 2024-01-24 12:34 | ED_ITS ---
HPI - General Adult General Chief complaint: Shortness of Breath/Dyspnea Stated complaint: sent from her PCP after her procedure. Time Seen by Provider: 01/24/24 11:45 Source: patient Mode of arrival: Ambulatory History of Present Illness HPI narrative: 68-year-old woman with paroxysmal atrial fibrillation anticoagulated on apixaban, hyperlipidemia, history of Mcallister's esophagus, hypothyroidism, spinal stenosis with radicular pain. She underwent cardiac ablation for paroxysmal atrial fibrillation on the . Had some trouble sleeping that night and last night noted that she had significant orthopnea, felt that she could not get a deep breath and was unable to lay flat at all. She has never had similar findings and does not carry a diagnosis of congestive heart failure. She had not noticed she was in atrial fibrillation initially and similarly is not having any chest pain or palpitations. No fevers, cough, chills no lower extremity edema Related Data Home Medications Medication Instructions Recorded Confirmed cholecalciferol (vitamin D3) 125 125 mcg PO DAILY 08/02/21 01/17/24 mcg (5,000 unit) capsule epinephrine 0.3 mg/0.3 mL 0.3 mg IM Q4H PRN 08/02/21 01/17/24 injection, auto-injector (EpiPen) glutamine 500 mg tablet 500 mg PO DAILY 08/02/21 01/17/24 (L-Glutamine) multivitamin 1 tab PO DAILY 08/02/21 01/17/24 omega-3 fatty acids 1,000 mg 1,000 mg PO DAILY 08/02/21 01/17/24 capsule probiotic 1 cap PO DAILY 08/02/21 01/17/24 Previous Rx's Medication Instructions Recorded apixaban 5 mg tablet (Eliquis) 5 mg PO BID #180 tabs 09/28/23 furosemide 20 mg tablet (Lasix) 20 mg PO DAILY #7 tabs 01/24/24 Allergies Allergy/AdvReac Type Severity Reaction Status Date / Time Penicillins Allergy lip Verified 01/24/24 11:56 swelling;childhood rxn Review of Systems Review of Systems Narrative: Pertinent positive and negative findings as per HPI Patient History Medical History Liver nodule Pulmonary nodule Elevated TSH Chronic anticoagulation Paroxysmal atrial fibrillation Low back pain Spinal stenosis, lumbar region with neurogenic claudication Lumbar radiculopathy Left sided sciatica Slow transit constipation History of Mcallister's esophagus History of colon polyps Tinnitus Family History Father Stroke Mother History of emphysema Social History details: (Sarwat Webster) household members: spouse Smoking Status: Former smoker alcohol intake: never Smoking Status: Former smoker alcohol intake frequency: other Substance Use Type: does not use Exam Initial Vital Signs Initial Vital Signs: Vital Signs Temperature 98.4 F 01/24/24 11:35 Pulse Rate 67 01/24/24 11:35 Respiratory Rate 18 01/24/24 11:35 Blood Pressure 127/58 L 01/24/24 11:35 Pulse Oximetry 98 01/24/24 11:35 Oxygen Delivery Method Room Air 01/24/24 11:35 General: Healthy appearing, in no acute distress. Able to give a complete and coherent history. Well-nourished well-developed HEENT: Moist mucous membranes, normal sclera with reactive pupils, Neck: No JVD, supple Respiratory: Lungs are clear to auscultation, no wheezing no rales no rhonchi. Full and symmetrical air movement Cardiac: Regular rate and rhythm no murmurs no bruits Abdomen: Soft, nontender, good bowel tones, no flank pain Skin: Warm and dry, no rashes Neurologic: Grossly neurologically intact with no obvious asymmetries or abnormalities Extremities: No trauma, well perfused, no lower extremity edema Psych: Cooperative, appropriate insight and affect Course Orders Ordered: ED Orders 01/24/24 11:39 EKG-12 Lead Stat Measure peak expiratory flow ONCE RT Consult Eval and Treat NOW 01/24/24 11:43 CT angio chest PE protocol Stat 01/24/24 11:50 Complete Blood Count AUTO DIFF Stat Comprehensive Metabolic Panel Stat Lactate (Lactic Acid) Stat NT-proBNP (BNP-Adult 18+) Stat Prothrombin Time INR Stat Troponin I Stat Vital Signs Vital signs: Vital Signs - 8 hr 01/24/24 11:35 Temperature 98.4 F Pulse Rate 67 Respiratory Rate 18 Blood Pressure 127/58 L Pulse Oximetry 98 Oxygen Delivery Method Room Air Medical Decision Making Lab Data 01/24/24 11:50 01/24/24 11:50 Labs: Lab Results 11/06/24 Range/Units 11:50 WBC 7.4 (4.5-11.0) X10^3/uL RBC 4.40 (4.0-5.2) X10^6/uL Hgb 13.6 (12.0-16.0) g/dL Hct 40.5 (36-46) % MCV 92.1 (80-100) fL MCH 31.0 (26-34) PG MCHC 33.7 (30-36) % RDW 14.1 (11.6-14.8) % Plt Count 158 (150-400) X10^3/uL Neut % (Auto) 74.0 (50-75) % Lymph % (Auto) 17.1 L (25-40) % [place] % (Auto) 7.6 (3-14) % Eos % (Auto) 0.7 L (2-4) % Baso % (Auto) 0.6 (0-2) % Neut # (Auto) 5500 (5695-1912) /uL Lymph # (Auto) 1300 (4815-7039) /uL [place] # (Auto) 600 (0-900) /uL Eos # (Auto) 100 (0-450) /uL Baso # (Auto) 0 (0-100) /uL PT 12.3 (9.4-12.5) SECONDS INR 1.1 (0.9-1.3) Sodium 138 (137-145) mmol/L Potassium 4.1 (3.4-5.1) mmol/L Chloride 106 (98-107) mmol/L Carbon Dioxide 26 (22-32) mmol/L BUN 21 H (7-17) mg/dL Creatinine 0.75 (0.52-1.04) mg/dL Estimated GFR > 60 (>60) mL/min BUN/Creatinine Ratio 28.0 H (6-22) Glucose 98 (80-110) mg/dL Lactate 0.8 (0.7-2.1) mmol/L Calcium 9.6 (8.4-10.2) mg/dL Total Bilirubin 0.6 (0.2-1.3) mg/dL AST 69 H (14-36) IU/L ALT 68 H (<35) IU/L Alkaline Phosphatase 64 (38-126) U/L Troponin I 1.760 H* (0.01-0.034) ng/mL NT-Pro-B Natriuret Pep 274 H (<125) pg/mL Total Protein 7.2 (6.3-8.2) g/dL Albumin 4.4 (3.5-5.0) g/dL Globulin 2.8 (1.7-4.1) g/dL Albumin/Globulin Ratio 1.6 (1.0-2.8) Imaging Data CT scan - chest: Radiologist's Impression: PROCEDURE: CT ANGIO CHEST PE PROTOCOL INDICATIONS: shortness of breath TECHNIQUE: After the administration of intravenous contrast, 2 mm thick sections acquired from the pulmonary apices to the posterior costophrenic angles. 3-dimensional maximum intensity projection (MIP) coronal and sagittal reformats were then acquired through the thorax. For radiation dose reduction, the following was used: automated exposure control, adjustment of mA and/or kV according to patient size. COMPARISON: [facility], CT, CT ANGIO CHEST, 01/05/2024, 11:41. FINDINGS: Image quality: Diagnostic. Pulmonary arteries: Pulmonary arteries are normal in size, and demonstrate no intraluminal filling defects to suggest central pulmonary embolism. Lower Neck: No enlarged lymph nodes. Thyroid: No thyroid nodules which require sonographic follow up, per consensus guidelines. Axillae: No enlarged lymph nodes. Chest Wall: Unremarkable. Bones: T6 bone island again noted.. Lungs and Pleura: No pneumothorax or pleural effusions. 0.9 cm ground-glass opacity, right upper lobe, image 101 of series 5. Ground-glass opacity, central portion of right upper lobe, image 98 of series 5, measuring 0.6 cm. Ground-glass opacity, anterior apical portion of left upper lobe, image 63 of series 5, measuring 0.8 cm. Question very subtle interstitial edema in the lung bases bilaterally. Heart: Mild enlargement of the left ventricle and left atrium. No pericardial effusion. Thoracic Vessels: No aortic aneurysm. Mediastinum and Loretta: No enlarged lymph nodes. Esophagus: No wall thickening. No hiatal hernia. Upper Abdomen: Visualized upper abdomen solid organs and bowel loops appear normal. IMPRESSION: 1. No acute pulmonary emboli. 2. Mild left ventricular and left atrial enlargement with a suggestion of very minimal interstitial pulmonary edema. 3. There are 2 separate nonspecific ground-glass opacities in the right upper lobe and a a ground-glass opacity in the left upper lobe. Differential diagnosis includes early findings of adenocarcinoma in situ as well as benign causes. Therefore, recommend six-month CT follow-up of the chest. Dictated by: Khanh Munoz M.D. on 01/24/2024 at 12:16 MDM Narrative Medical decision making narrative: CC: 68-year-old woman post cardiac ablation 01/21 Complicating co-morbidities: No prior history of congestive heart failure, coronary artery disease post ablation Data collected from: patient Medical records reviewed: Notes from [facility] including ablation and phone calls with complaints and recommendations to come to the ER are reviewed Differential considered: Heart failure, pulmonary embolism, recurrent atrial fibrillation, acute coronary syndrome Exam documented above, pertinent findings include: Patient does have orthopnea however remainder of exam is benign, I do not appreciate JVD, basilar crackles or lower extremity edema Lab Test results independently reviewed as above. Pertinent findings: Chemistries are reassuring. Normal renal function. Minimal elevation to AST and ALT At 69 and 68 respectively Troponin is elevated at 1.76, unclear how to interpret this in light of the ablation less than 48 hours ago ProBNP is minimally elevated at 274 CBC is reassuring and does not suggest anemia or infection Independently reviewed EKG: Sinus rhythm at a rate of 68. No acute ischemic changes Imaging studies independently reviewed: CT angiogram shows no pleural effusion, no pulmonary emboli, left ventricular and left atrial enlargement with a suggestion of minimal interstitial pulmonary edema. Bilateral nonspecific ground-glass opacity in upper lobes CT follow up is recommended Consultations: Discussed with Dr. Mcfadden. Agrees with brief course of diuretics, discharge home, outpatient follow up. Did not suggest any follow up with the troponin in light of cardiac ablation 48 hours ago Treatments: IV Lasix Discussion: 68-year-old woman with atrial fibrillation post cardiac ablation 48 hours ago complaining of orthopnea and chest pressure with a deep breath. 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 No evidence of secondary signs of significant congestive heart failure and clinical exam. Labs reassuring with no anemia, infection no significant changes with chemistries. Troponin is elevated as 1 would expect 48 hours after a cardiac ablation. CT angiogram shows no pulmonary embolism, pericardial effusion pleural effusions or alternate explanations for her dyspnea. In consultation with the patient and Dr. Mcfadden she is given 40 mg of Lasix in the emergency department and a prescription for 7 additional days of 20 mg of Lasix. She has had cardiac catheterization fairly recently and did not have significant cardiac disease, my suspicion for acute coronary etiologies a source of her symptoms is low. We will ask her to call the cardiology office and move her follow up appointment to about a week to correlate with her brief course of outpatient Lasix. At this time there was no indication for additional blood work, imaging or hospitalization and she is safe for discharge Discharge Plan Departure Patient Disposition: Home Clinical Impression: Orthopnea Instructions: DI for Shortness of Breath Activity Restrictions/Additional Instructions: Thank you for coming in today The CT scan of your chest does not show blood clots, fluid around your heart, fluid around her lungs or any significant findings that would require immediate treatment or hospitalization. Your labs suggest small amount of fluid in your lungs which I believe is causing the shortness of breath when you lay down flat and that is sensation that you can not get a full breath. You were given 40 mg of Lasix in the emergency department and I expect you will have lots of pee today. I am going to give you a prescription for 7 more days of Lasix, you will need to follow up with somebody in the cardiology office in about a week to make sure that you are feeling better. I suspect that you will not need an extended course of Lasix but Dr. Mcfadden will review that with you [facility] [place] If you find that you are getting worse or develop any new symptoms, please feel free to return to the emergency department for further evaluation. Prescriptions: New furosemide [Lasix] 20 mg tablet 20 mg PO DAILY Qty: 7 0RF No Action Eliquis 5 mg tablet 5 mg PO BID Qty: 180 3RF cholecalciferol (vitamin D3) 125 mcg (5,000 unit) capsule 125 mcg PO DAILY multivitamin Tablet 1 tab PO DAILY omega-3 fatty acids 1,000 mg capsule 1,000 mg PO DAILY epinephrine [EpiPen] 0.3 mg/0.3 mL auto-injector 0.3 mg IM Q4H PRN L-Glutamine 500 mg tablet 500 mg PO DAILY probiotic 1 cap PO DAILY Referrals: Octavoi Mooney MD [Primary Care Provider] - Stand Alone Forms: Patient Portal/API/Survey
[2024-01-24 12:38] VITALS: PULSE 63; RESP 18; O2SAT 97
[2024-01-24 12:39] VITALS: BP 152/78; PULSE 65; RESP 16; O2SAT 99
[2024-01-24] MEDS: FUROSEMIDE 40 MG/4 ML VIAL IV (12:59)
[2024-01-24 13:00] VITALS: BP 157/87; PULSE 64; RESP 21; O2SAT 99
== END 2024-01-24 13:30 | disposition home or self-care (01) ==
PROVIDERS: Emergency Provider Emergency Medicine; PCP Internal Medicine
DX: R06.01 Orthopnea (principal); R07.9 Chest pain, unspecified
CPT/HCPCS: 36415; 71275; 80053; 83605; 83880; 84484; 85025; 85610; 93005; 93010; 96374; 99284; J1940; Q9967

== ENCOUNTER → 2024-06-03 10:34 | Outpatient (CLI) | payer MEDICARE, OTHER, SELFPAY ==
--- NOTE | 2024-06-03 11:00 | DI.CT.S_ITS ---
PROCEDURE: CT CHEST WO CON INDICATIONS: followup pulmonary/liver nodules TECHNIQUE: Noncontrast 5 mm thick sections acquired from the pulmonary apices to the posterior costophrenic angles. 1 mm lung window, 5 mm thick coronal and sagittal and 7 mm axial MIP reformats were then acquired. For radiation dose reduction, the following was used: automated exposure control, adjustment of mA and/or kV according to patient size. COMPARISON: [facility], CT, CT ANGIO CHEST, 01/05/2024, 11:41. FINDINGS: Image quality: Diagnostic. Lower Neck: No enlarged lymph nodes. Thyroid: No thyroid nodules which require sonographic follow up, per consensus guidelines. Axillae: No enlarged lymph nodes. Chest Wall: Unremarkable. Bones: Unremarkable. Lungs and Pleura: No pneumothorax or pleural effusions. Multiple pulmonary nodules in ground-glass opacities are again noted. 1. On current image 94 of series 3 and previous image 101 of series 5 is a posterior right apical ground-glass opacity which has slightly increased in size. It previously measured 0.8 cm and now measures 0.9 cm. 2. On previous image 97 and current image 88 is a right apical subsolid pulmonary nodule which is unchanged in size, but is developing a small solid area within it. 3. In the left apex on previous image 65 and current image 54 is a stable 0.9 cm ground-glass opacity. 4. In the medial infrahilar region on the left in the left lower lobe subjacent to the aorta is a ground-glass opacity which is slightly greater in size than on the previous study. On previous image 173 it measured 0.9 x 1.1 cm. On current image 162 it measures 1.2 x 1.1 cm. 5. Stable 4 mm pulmonary nodule, left upper lobe, image 59. 6. Stable ground-glass opacity, right upper lobe, image 81, 0.5 cm. Heart: Heart size is normal. No pericardial effusion. Thoracic Vessels: The aorta and pulmonary arteries demonstrate normal size. Mediastinum and [place]oret[place]: No enlarged lymph nodes. Esophagus: No wall thickening. No hiatal hernia. Upper Abdomen: Visualized upper abdomen solid organs and bowel loops appear normal. IMPRESSION: 1. Again noted are multiple ground-glass opacities which not only are persistent, but have, in multiple cases, slightly increased in size. Findings may potentially represent multifocal adenocarcinoma in situ. At this point, they are likely too small to be evaluated utilizing PET-CT. The interval follow-up between these 2 studies was approximately 5 months. Would recommend six-month follow-up CT to assess for any interval change. If there is further interval growth, at that point, PET-CT may be indicated. Dictated by: Khanh Munoz M.D. on 06/03/2024 at 17:05 Approved by: Khanh Munoz M.D. on 06/03/2024 at 17:16
== END ==
PROVIDERS: PCP Internal Medicine; Referring Provider Internal Medicine; Visit Provider Internal Medicine
DX: R91.8 Other nonspecific abnormal finding of lung field (principal); R91.1 Solitary pulmonary nodule; K76.89 Other specified diseases of liver
CPT/HCPCS: 71250

== ENCOUNTER 2024-07-16 09:17 | Outpatient (CLI) | payer MEDICARE, OTHER, SELFPAY ==
[2024-07-16 09:45] VITALS: BP 129/65; PULSE 70; RESP 16; TEMP 37; O2SAT 98
[2024-07-16 10:17] VITALS: BP 177/85; PULSE 76; RESP 16; O2SAT 100
[2024-07-16 10:25] VITALS: BP 155/75; PULSE 72; RESP 16; O2SAT 100
[2024-07-16] MEDS: iopamidoL 15 ML VIAL 3 ML INJ (10:26)
[2024-07-16] MEDS: BETAMETHASONE 30 MG/5 ML MDV 12 MG INJ (10:27)
[2024-07-16] MEDS: DEXAMETHASONE 10 MG/ML VIAL 20 MG INJ (10:28)
[2024-07-16] MEDS: BUPIVACAINE 0.25% (PF) VIAL 2 ML INJ (10:28)
[2024-07-16] MEDS: BETAMETHASONE 30 MG/5 ML MDV 6 MG INJ (10:29)
[2024-07-16 10:30] VITALS: BP 157/79; PULSE 73; RESP 16; O2SAT 100
[2024-07-16 10:35] VITALS: BP 159/83; PULSE 73; RESP 16; O2SAT 100
--- NOTE | 2024-07-16 10:39 | P.PCN_ITS ---
Date/Time/Diagnoses Date of procedure: 07/16/24 Time of procedure: 10:39 Pre-procedure diagnosis: 1. FORAMINAL STENOSIS WITH LE SYMPTOMS Post-procedure diagnosis: same Procedure Notes Procedure: 1. FLUOROSCOPICALLY GUIDED CONTRAST CONTROLLED TRANSFORAMINAL EPIDURAL STEROID INJECTION - LEFT L4/5 Indications: Bela is referred by Dr. Mooney for treatment of Foraminal Stenosis with Left LE Symptoms Physician: Can Domínguez Total Fluoroscopy time (seconds): 12 Total sedation minutes: 0 Complications: none Procedure in detail & Post-procedure care: FINDINGS Foraminal Nerve Root Compression secondary to disc disease and facet hypertrophy DESCRIPTION OF PROCEDURE Following review of allergy and review of potential side effects and complications, including, but not necessarily limited to, infection, allergic reaction, local tissue breakdown, stroke, temporary or permanent nerve injury, paralysis, and possible , the patient indicated that the patient understood and agreed to proceed. An informed consent document was signed by the patient, witnessed by a nurse, and placed in the patient's chart. Additionally, other treatment options including medications, modalities, and physical therapy were reviewed with the patient. After review of previous anaesthesic history and IV conscious sedation the patient was deemed safe to proceed with today?s procedure with IV conscious sedation as ASA class II designation. Safety time-out was performed to confirm patient ID, procedure to be performed and site of procedure. IV sedation was not administered by the RN after DO order, titrated to patient comfort during the course of the procedure while the patient remained responsive to all verbal commands In the prone position following sterile prep and drape of the lumbar region, the left L4/5 posterior neuroforamen was identified fluoroscopically. The skin was anesthetized via a 25-gauge 1.5-inch needle with 1% lidocaine solution. At this point, a 25-gauge 3.5-inch spinal needle was atraumatically introduced and advanced under fluoroscopic guidance through the posterior left L4/5 neuroforamen to approximately the anterior aspect of the canal. Depth was confi rmed on lateral view. Following negative aspiration, injection of approximately 1.5 cc of Isovue 200 under live fluoroscopy in the AP view confirmed excellent flow along the nerve root, into the epidural space without vascular or intrathecal uptake observed Radiological data, including multiple fluoroscopic views of the lumbosacral spine, reveal a spinal needle at the left L4/5 posterior neuroforamen. Subsequent views show flow of contrast material flowing superiorly and inferiorly along the nerve root confirming epidural flow. Subsequently, a test dose of 1.5 cc of 1% lidocaine solution was administered and patient was observed for two minutes for signs or symptoms of complications, including abdominal pain, shortness of breath, bilateral upper or lower extremity weakness, nausea and vomiting, prior to steroid injection. At this point, a total of 2cc or 10mg of dexamethasone and 6mg of betamethasone was injected without incident. The procedure tolerated the procedure well without signs or symptoms of complications prior to transfer to the recovery area continued monitoring without incident. The patient was then transferred to the recovery area where they were observed for an appropriate time after the injection. The patient reported a VAS score of 7 prior to the procedure and a post- procedure VAS of 0. POST OP INSTRUCTIONS The patient was provided a Pain Log to continue to record their response to the target-specific procedure prior to follow-up visit with their referring physician. Additionally, specific post-injection care instructions and a contact number to our office were provided if concerns arise regarding possible complications associated with the procedure are suspected.
[2024-07-16 10:40] VITALS: BP 177/79; PULSE 66; RESP 14; O2SAT 95
--- NOTE | 2024-07-16 10:40 | P.PCN_ITS ---
Date/Time/Diagnoses Date of procedure: 07/16/24 Time of procedure: 10:40 Pre-procedure diagnosis: 1. FORAMINAL STENOSIS WITH LE SYMPTOMS Post-procedure diagnosis: same Procedure Notes Procedure: 1. FLUOROSCOPICALLY GUIDED CONTRAST CONTROLLED TRANSFORAMINAL EPIDURAL STEROID INJECTION - Left L5/S1 Indications: Bela is referred by Dr. Mooney for treatment of Foraminal Stenosis with Left LE Symptoms Physician: Can Domínguez Total Fluoroscopy time (seconds): 12 Total sedation minutes: 0 Complications: none Procedure in detail & Post-procedure care: FINDINGS Foraminal Nerve Root Compression secondary to disc disease and facet hypertrophy DESCRIPTION OF PROCEDURE Following review of allergy and review of potential side effects and complications, including, but not necessarily limited to, infection, allergic reaction, local tissue breakdown, stroke, temporary or permanent nerve injury, paralysis, and possible , the patient indicated that the patient understood and agreed to proceed. An informed consent document was signed by the patient, witnessed by a nurse, and placed in the patient's chart. Additionally, other treatment options including medications, modalities, and physical therapy were reviewed with the patient. After review of previous anaesthesic history and IV conscious sedation the patient was deemed safe to proceed with today?s procedure with IV conscious sedation as ASA class II designation. Safety time-out was performed to confirm patient ID, procedure to be performed and site of procedure. IV sedation was not administered by the RN after DO order, titrated to patient comfort during the course of the procedure while the patient remained responsive to all verbal commands In the prone position following sterile prep and drape of the lumbar region, the Left L5/S1 posterior neuroforamen was identified fluoroscopically. The skin was anesthetized via a 25-gauge 1.5-inch needle with 1% lidocaine solution. At this point, a 25-gauge 3.5-inch spinal needle was atraumatically introduced and advanced under fluoroscopic guidance through the posterior Left L5/S1 neuroforamen to approximately the anterior aspect of the canal. Depth was c onfirmed on lateral view. Following negative aspiration, injection of approximately 1.5 cc of Isovue 200 under live fluoroscopy in the AP view confirmed excellent flow along the nerve root, into the epidural space without vascular or intrathecal uptake observed Radiological data, including multiple fluoroscopic views of the lumbosacral spine, reveal a spinal needle at the Left L5/S1 posterior neuroforamen. Subsequent views show flow of contrast material flowing superiorly and inferiorly along the nerve root confirming epidural flow. Subsequently, a test dose of 1.5 cc of 1% lidocaine solution was administered and patient was observed for two minutes for signs or symptoms of complications, including abdominal pain, shortness of breath, bilateral upper or lower extremity weakness, nausea and vomiting, prior to steroid injection. At this point, a total of 2cc or 10mg of dexamethasone and 6mg of betamethasone was injected without incident. The procedure tolerated the procedure well without signs or symptoms of complications prior to transfer to the recovery area continued monitoring without incident. The patient was then transferred to the recovery area where they were observed for an appropriate time after the injection. The patient reported a VAS score of 7 prior to the procedure and a post-procedure VAS of 0. POST OP INSTRUCTIONS The patient was provided a Pain Log to continue to record their response to the target-specific procedure prior to follow-up visit with their referring physician. Additionally, specific post-injection care instructions and a contact number to our office were provided if concerns arise regarding possible complications associated with the procedure are suspected.
== END 2024-07-16 10:40 | disposition home or self-care (01) ==
PROVIDERS: PCP Internal Medicine; Referring Provider Physical Medicine & Rehabilitation; Visit Provider Physical Medicine & Rehabilitation
DX: M48.061 Spinal stenosis, lumbar region without neurogenic claudication (principal); M48.07 Spinal stenosis, lumbosacral region; M51.16 Intervertebral disc disorders with radiculopathy, lumbar region; M47.26 Other spondylosis with radiculopathy, lumbar region; M51.17 Intervertebral disc disorders with radiculopathy, lumbosacral region; M47.27 Other spondylosis with radiculopathy, lumbosacral region
CPT/HCPCS: 64483; 64484; J0702; J1100; J3490

== ENCOUNTER → 2024-07-29 08:36 | Outpatient (CLI) | payer MEDICARE, OTHER, SELFPAY ==
--- NOTE | 2024-07-29 08:38 | DI.MG.S_ITS ---
MM diagnostic mammo BI: 07/29/2024. BI-RADS: 2 CLINICAL: 69-year old female for bilateral diagnostic mammogram that is a follow-up to diagnostic, bilateral, digital, tomosynthesis on 07/26/2023. Tyrer-Cuzick lifetime risk of 6.7%. Current reported family history of breast cancer: mother. PRIOR EXAMS 07/26/2023, 01/23/2023, 07/21/2022, 07/09/2022. MAMMOGRAPHY TECHNIQUE: 2D and 3D (tomosynthesis) digital mammographic views obtained, with additional images as needed for full coverage. Current study was also evaluated with a Computer Aided Detection (CAD) system. DENSITY B. There are scattered areas of fibroglandular density. MAMMOGRAPHY FINDINGS Right: No suspicious mass, asymmetry, microcalcification, or other abnormality seen. Left: There are benign round calcifications in regional distribution that are unchanged in number. IMPRESSION: Right * No evidence of malignancy. Left * No evidence of malignancy with benign findings. RECOMMENDATIONS Bilateral * Annual screening mammography. OVERALL ASSESSMENT CATEGORY BI-RADS-2: Benign. The [employer] recommends annual screening mammography beginning at age 40 for women with average risk of breast cancer. ELECTRONICALLY SIGNED: Trey Metzger M.D. on 07/29/2024 at 09:27:30 AM PT Interpreting Station ID: [id number]
== END ==
LOC: MAMMO 08:37
PROVIDERS: PCP Internal Medicine; Referring Provider Internal Medicine; Visit Provider Internal Medicine
DX: R92.8 Other abnormal and inconclusive findings on diagnostic imaging of breast (principal); R92.1 Mammographic calcification found on diagnostic imaging of breast; Z80.3 Family history of malignant neoplasm of breast
CPT/HCPCS: 77066; G0279

== ENCOUNTER → 2024-08-21 06:44 | Outpatient (CLI) | payer MEDICARE, OTHER, SELFPAY ==
[2024-08-21 08:05] LABS: BUN Creatinine Ratio 33.8 (6-22); Blood Urea Nitrogen 24 mg/dL (7-17); Calcium 9.4 mg/dL (8.4-10.2); Carbon Dioxide 28 mmol/L (22-32); Chloride 103 mmol/L (98-107); Estimated Glomerular Filt Rate > 60 mL/min (>60); Glucose 98 mg/dL (70-99); HEMOLYSIS < 15 (0-50); Potassium 4.3 mmol/L (3.4-5.1); Sodium 137 mmol/L (137-145)
== END ==
PROVIDERS: PCP Internal Medicine; Referring Provider Internal Medicine; Visit Provider Internal Medicine
DX: I28.8 Other diseases of pulmonary vessels (principal)
CPT/HCPCS: 36415; 80048

== ENCOUNTER → 2024-09-27 06:42 | Outpatient (CLI) | payer MEDICARE, OTHER, SELFPAY ==
[2024-09-27 07:39] LABS: Hematocrit 41.9 % (36-46); Hemoglobin 14.4 g/dL (12.0-16.0); Mean Corpuscular HGB Conc 34.5 % (30-36); Mean Corpuscular Hemoglobin 31.3 PG (26-34); Mean Corpuscular Volume 90.7 fL (80-100); Platelet Count 165 X10^3/uL (150-400)
[2024-09-27 08:37] LABS: Albumin 4.0 g/dL (3.5-5.0); Chloride 104 mmol/L (98-107); HEMOLYSIS < 15 (0-50)
[2024-09-27 08:38] LABS: Alanine Aminotransferase 35 IU/L (<35); Albumin Globulin Ratio 1.6 (1.0-2.8); Alkaline Phosphatase 55 U/L (38-126); Blood Urea Nitrogen 25 mg/dL (7-17); Calcium 9.5 mg/dL (8.4-10.2); Carbon Dioxide 28 mmol/L (22-32); Cholesterol 210 mg/dL (140-199); Estimated Glomerular Filt Rate > 60 mL/min (>60); Globulin 2.5 g/dL (1.7-4.1); Glucose 102 mg/dL (70-99); HDL Cholesterol 95 mg/dL (40-60); Potassium 5.1 mmol/L (3.4-5.1); Sodium 138 mmol/L (137-145); Total Protein 6.5 g/dL (6.3-8.2); Triglycerides 58 mg/dL (35-150)
[2024-09-27 09:07] LABS: TSH w/ Reflex to FT4 1.41 uIU/mL (0.47-4.68)
== END ==
PROVIDERS: PCP Internal Medicine; Referring Provider Internal Medicine; Visit Provider Internal Medicine
DX: I48.0 Paroxysmal atrial fibrillation (principal); R79.89 Other specified abnormal findings of blood chemistry; E78.2 Mixed hyperlipidemia; Z12.11 Encounter for screening for malignant neoplasm of colon; Z86.0100 Personal history of colon polyps, unspecified
CPT/HCPCS: 36415; 80053; 80061; 82274; 84443; 85027

== ENCOUNTER → 2024-10-01 09:21 | Outpatient (CLI) | payer MEDICARE, OTHER, SELFPAY ==
--- NOTE | 2024-10-01 09:23 | DI.CT.S_ITS ---
PROCEDURE: CT ANGIO CHEST INDICATIONS: pulmonary venous stenosis/chest pain TECHNIQUE: After the administration of intravenous contrast, 3 mm thick sections acquired from the pulmonary apices to the posterior costophrenic angles. 3-dimensional maximum intensity projection (MIP) coronal reformats were then acquired parallel to the pulmonary veins. For radiation dose reduction, the following was used: automated exposure control, adjustment of mA and/or kV according to patient size. COMPARISON: [facility], CT, CT ANGIO CHEST PE PROTOCOL, 01/24/2024, 11:58. FINDINGS: Image quality: Excellent. Pulmonary veins: Superior and inferior right and left pulmonary veins appear patent. There is an apparent filling defect in the anterosuperior region of the left atrium, adjacent to the junction with the right superior pulmonary vein. This measures 1 x 1 x 0.5 cm. Lungs and pleura: There are again seen to areas of ground-glass density in the right upper lobe and 1 lesion in the left apex. This measure up to 9 mm in the right upper lobe posteriorly, minimally more prominent at this level. Mediastinum: Heart size is normal, without pericardial effusion. No mediastinal or hilar adenopathy. Thoracic aorta and pulmonary arteries are normal in caliber and enhancement. Esophagus is normal in caliber, without hiatal hernia. Bones and chest wall: No suspicious bony lesions. Ribs and thoracic spine appear intact throughout. No axillary or supraclavicular adenopathy. Thyroid gland unremarkable . Abdomen: Visualized upper abdominal solid organs appear normal in the early arterial phase of enhancement. IMPRESSION: 1. Findings most suggestive of small thrombus in the left atrium, adjacent to the junction of the right superior pulmonary vein, measuring up to 1 cm. 2. No signs of pulmonary vein stenosis. No pulmonary edema. 3. Persistent 3 areas of ground-glass density in both upper lobes, minimally enlarged for the dominant lesion in the right upper lobe. These may represent adenocarcinoma spectrum lesions, can be further assessed with follow-up CT in 1 year. Dictated by: Reinier Gilbert M.D. on 10/01/2024 at 14:46 Approved by: Reinier Gilbert M.D. on 10/01/2024 at 14:59
--- NOTE | 2024-10-01 09:23 | DI.ECHO.S_ITS ---
[facility]---------+ [facility] : : [address] : : [place] : : [id number] : : Phone: [phone] Echocardiogram Report + :Name: WEI FRANKLIN Date: 10/01/2024 Height: 69 in : :[facility] ReadingLocation: Weight: 170 lb : : Gender: Female BSA: 1.9 m2 : :: 1955 Age: 69 yrs BP: 118/70 mmHg: :Reason For Study: CHEST PAIN : :Ordering Physician: Provider Nikos : :Nate Performed By: Victor Hugo Pelletier : :Referring: ZIGGY HUI : + Interpretation Summary 1. Normal LV contractility with EF > 65%. No WMA. No LVH. Normal diastolic function. 2. Normal RV contractility. 3. Mild LAE. 4. No significant valvular abnormalities. 5. No obvious intracardiac shunts. 6. No obvious intracardiac masses/thrombi. 7. No hemodynamically significant pericardial effusion. 8. Low right sided filling pressures. Conclusion: Normal biventricular function without significant valvular abnormalities. Procedure: A two-dimensional transthoracic echocardiogram with color flow and Doppler was performed. The study quality was technically adequate. Comparison is made with the echocardiogram of 08/08/2023. The patient was in sinus bradycardia with heart rates between 58-65 bpm during the exam. Left Ventricle: The left ventricle is normal in size and wall thickness. The ejection fraction is estimated to be 65-70%. Normal diastolic function. Right Ventricle: The right ventricle is normal in size and function. Atria: The left atrium is mildly dilated. Right atrial size is normal. There is no Doppler evidence for an interatrial shunt. Mitral Valve: The mitral valve leaflets appear mildly thickened. There is trace mitral regurgitation. Aortic Valve: The aortic valve is trileaflet. The aortic valve opens well. There is no aortic valve stenosis. There is trace aortic regurgitation. Tricuspid Valve: The tricuspid valve leaflets are thin and pliable. There is trace tricuspid regurgitation. The right ventricular systolic pressure is estimated to be at least 22 mmHg based on an estimated right atrial pressure of 3 mm Hg. Pulmonic Valve: The pulmonic valve is not well seen, but is grossly normal. There is trace pulmonic regurgitation. Great Vessels: The aortic root is normal size. The dimensions of the ascending aorta are normal. The IVC is of normal diameter and collapses greater than 50% with a sniff. This suggests a low right atrial pressure of 3 mm Hg. Pericardium/ Pleura There is no pericardial effusion. There is no pleural effusion. MMode/2D Measurements & Calculations LVIDd: 4.4 cm LVOT diam: 2.0 cm LVIDs: 2.6 cm Ao root diam: 3.2 cm FS: 41.9 % asc Aorta Diam: 2.4 cm IVSd: 0.90 cm Ao Arch Diam (Prox Trans): 2.4 cm LVPWd: 0.84 cm LV arriaga. diameter/BSA (cm/m^2): 2.3 LV sys. diameter/BSA (cm/m^2): 1.3 LA A2 area: 23.3 cm2 RA long axis: 5.3 cm LA A4 area: 18.1 cm2 RA area: 15.3 cm2 LA length (vol): 5.0 cm RA vol: 37.7 ml LA vol: 71.6 ml RA : 19.6 ml/m2 LA vol index: 37.1 ml/m2 IVC diam: 1.4 cm RVD1 (basal): 3.3 cm RVD2 (mid): 2.4 cm TAPSE: 1.8 cm Doppler Measurements & Calculations Ao V2 max: 169.5 cm/sec LVOT Max Aren: 150.9 cm/sec Ao V2 mean: 108.3 cm/sec LV V1 max P.1 mmHg Ao max P.5 mmHg LV V1 VTI: 28.8 cm Ao mean P.4 mmHg GREG(I,D): 2.8 cm2 Ao V2 VTI: 32.7 cm GREG(V,D): 2.8 cm2 sev ratio: 0.88 GREG indexed to BSA (cm^2/m^2): 1.4 MV E max aren: 61.3 cm/sec TR max aren: 216.4 cm/sec MV A max aren: 45.7 cm/sec TR max P.7 mmHg MV E/A: 1.3 PA V2 max: 98.3 cm/sec Med Peak E' Aren: 10.3 cm/sec PA V2 mean: 66.8 cm/sec E/E' med: 5.9 PA mean P.0 mmHg Lat Peak E' Aren: 12.3 cm/sec PA pr(Accel): 22.5 mmHg E/E' lat: 5.0 E/e' average: 5.4 MV dec time: 0.25 sec SVLVOT): 91.1 ml Reading Physician:DIXIE
== END ==
PROVIDERS: PCP Internal Medicine; Referring Provider Internal Medicine; Visit Provider Internal Medicine
DX: I28.8 Other diseases of pulmonary vessels (principal); R07.9 Chest pain, unspecified; R91.8 Other nonspecific abnormal finding of lung field
CPT/HCPCS: 71275; 93306; Q9967